=== PATIENT | female | born 1960 | race Hispanic/Latino ===

== ENCOUNTER 2017-04-30 08:11 | Day surgery (SDC) | payer MEDICARE ==
[~2017-04-30 08:11] MED LIST: ATROPINE OPTH SL; BISA10S PR; CALC-1190 GT; FOLI1TAB15 GT; FURO40SO4 GT; LACT10SO9 GT; LACTOBACILLUS GT; LANO3.5O OU; LEVE500L GT; LEVO88TA4 GT; LIDE560S TP; MICO5POW6 TP; MOME17N NS; MULT1TAB70 GT; NA P133E22 RC; VALP250S5 GT
[2017-04-30] MEDS ORDERED: ONDANSETRON HCL 4 MG/2 ML VIAL ONE (10:43)
[2017-04-30] MEDS ORDERED: PROPOFOL 10 MG/ML 20ML VIAL IV ONE (11:43)
== END 2017-04-30 12:47 ==
LOC: DAH 08:11
PROVIDERS: ATTEND Internal Medicine
DX: K94.23 Gastrostomy malfunction (principal); K31.89 Other diseases of stomach and duodenum; G40.909 Epilepsy, unspecified, not intractable, without status epilepticus; G80.9 Cerebral palsy, unspecified; E03.9 Hypothyroidism, unspecified; M41.9 Scoliosis, unspecified; M81.0 Age-related osteoporosis without current pathological fracture; Z98.890 Other specified postprocedural states; Z79.899 Other long term (current) drug therapy
CPT/HCPCS: 43246; A4606; J2704; J2405